=== PATIENT | male | born 1955 | race Caucasian/White ===

== ENCOUNTER 2025-09-27 17:22 | Inpatient (IN) | payer MEDICARE, OTHER ==
[2025-09-27 18:05] LABS: #Basophils 0.06 10x3/uL (0.0-0.2); #Eosinophils 0.21 10x3/uL (0.0-0.7); #Monocytes 0.43 10x3/uL (0.11-0.59); #Neutrophils 3.91 10x3/uL (1.40-6.50); %Basophils 1.1 % (0.0-1.0); %Eosinophils 3.9 % (0.0-10.0); %Lymphocytes 13.6 % (21.0-51.0); %Monocytes 8.0 % (0.0-10.0); %Neutrophils 73.2 % (42.0-75.0); Hematocrit 41.2 % (42.0-52.0); Hemoglobin 12.6 g/dL (14.0-18.0); Mean Corpuscular Hemoglobin 28.0 pg (27.0-31.0); Mean Corpuscular Volume 91.6 fL (78.0-98.0); Platelet Count 161 10x3/uL (130-400); Red Blood Cell (RBC) Count 4.50 mill/uL (4.70-6.10); White Blood Cell (WBC) Count 5.35 10x3/uL (4.8-10.8)
[2025-09-27 18:23] LABS: ALT (SGPT) 12 U/L (Less than 45); AST (SGOT) 12 U/L (11-34); Albumin 4.1 g/dL (3.1-4.5); Alkaline Phosphatase 67 U/L (40-110); Anion Gap 16 mmol/L (10-20); BUN (Urea Nitrogen) 41 mg/dL (8.4-25.7); Bilirubin, Total 0.4 mg/dL (0.3-1.2); Calc. Creatinine Clearance 0 mL/min (70-130); Calcium 9.6 mg/dL (7.8-10.44); Carbon Dioxide 31 mmol/L (23-31); Chloride 103 mmol/L (98-107); Globulin 2.6 g/dL (2.4-3.5); Glucose 98 mg/dL (80-115); Potassium 4.5 mmol/L (3.5-5.1); Sodium 145 mmol/L (136-145)
[2025-09-27] MEDS ORDERED: hydrALAZINE 20 MG/ML VIAL ONE (19:32)
[2025-09-27] MEDS ORDERED: Ondansetron PF 4 MG/2 ML Vial IVP PRN (19:40)
[2025-09-27] MEDS ORDERED: Calcium Carbonate 500 MG ChewTAB PO PRN (19:40)
[2025-09-27] MEDS: Bumetanide 1 MG/4 ML VIAL IVP SCH (22:45)
[2025-09-27] MEDS: Carvedilol 3.125 MG TAB PO SCH (22:51)
[2025-09-27] MEDS: Heparin 5,000 UNITS/ML VIAL SC SCH (22:51)
[2025-09-28 04:50] LABS: #Basophils 0.07 10x3/uL (0.0-0.2); #Eosinophils 0.26 10x3/uL (0.0-0.7); #Monocytes 0.54 10x3/uL (0.11-0.59); #Neutrophils 4.52 10x3/uL (1.40-6.50); %Basophils 1.1 % (0.0-1.0); %Eosinophils 4.1 % (0.0-10.0); %Lymphocytes 14.3 % (21.0-51.0); %Monocytes 8.6 % (0.0-10.0); %Neutrophils 71.6 % (42.0-75.0); Hematocrit 38.7 % (42.0-52.0); Hemoglobin 11.6 g/dL (14.0-18.0); Mean Corpuscular Hemoglobin 27.8 pg (27.0-31.0); Mean Corpuscular Volume 92.8 fL (78.0-98.0); Platelet Count 139 10x3/uL (130-400); Red Blood Cell (RBC) Count 4.17 mill/uL (4.70-6.10); White Blood Cell (WBC) Count 6.31 10x3/uL (4.8-10.8)
[2025-09-28 05:21] LABS: Anion Gap 11 mmol/L (10-20); BUN (Urea Nitrogen) 46 mg/dL (8.4-25.7); Calc. Creatinine Clearance 19 mL/min (70-130); Calcium 9.7 mg/dL (7.8-10.44); Carbon Dioxide 32 mmol/L (23-31); Chloride 103 mmol/L (98-107); Glucose 95 mg/dL (80-115); Magnesium 2.4 mg/dL (1.6-2.6); Potassium 4.2 mmol/L (3.5-5.1); Sodium 142 mmol/L (136-145)
[2025-09-28] MEDS ORDERED: Furosemide 40 MG (4 mL) VIAL SLOW IVP SCH (06:00)
[2025-09-28] MEDS: Losartan 25 MG TAB PO SCH (09:36)
[2025-09-28] MEDS: Aspirin 325 MG TAB PO SCH (09:36)
[2025-09-28] MEDS ORDERED: Albuterol 2.5 MG (3 mL) NEB NEB PRN (11:53)
[2025-09-28] MEDS ORDERED: Furosemide 100 MG (10 mL) VIAL SLOW IVP SCH (14:00)
[2025-09-28 14:04] VITALS: BMI 20.5
[2025-09-28] MEDS: Guaifenesin DM 100-10/5 ML UDCUP PO PRN (14:38)
[2025-09-28 15:18] LABS: Bacteria/HPF None Seen HPF (None Seen); Glucose, Urine (Dipstick) Normal (Negative); Leukocyte Negative Leu/uL (Negative); Protein, Urine (Dipstick) Negative (Neg-Trace); RBC/HPF 0-3 HPF (0-3); Specific Gravity, Urine 1.007 (1.002-1.036); WBC/HPF None Seen HPF (0-3)
[2025-09-28 15:30] LABS: Sodium, Urine 91.0 mmol/L (Not Available)
[2025-09-28] MEDS: Furosemide 100 MG (10 mL) VIAL SLOW IVP SCH (16:44)
[2025-09-29 04:43] LABS: #Basophils 0.06 10x3/uL (0.0-0.2); #Eosinophils 0.23 10x3/uL (0.0-0.7); #Monocytes 0.41 10x3/uL (0.11-0.59); #Neutrophils 3.60 10x3/uL (1.40-6.50); %Basophils 1.2 % (0.0-1.0); %Eosinophils 4.5 % (0.0-10.0); %Lymphocytes 15.8 % (21.0-51.0); %Monocytes 8.0 % (0.0-10.0); %Neutrophils 70.3 % (42.0-75.0); Hematocrit 37.8 % (42.0-52.0); Hemoglobin 11.5 g/dL (14.0-18.0); Mean Corpuscular Hemoglobin 28.0 pg (27.0-31.0); Mean Corpuscular Volume 92.2 fL (78.0-98.0); Platelet Count 136 10x3/uL (130-400); Red Blood Cell (RBC) Count 4.10 mill/uL (4.70-6.10); White Blood Cell (WBC) Count 5.12 10x3/uL (4.8-10.8)
[2025-09-29 04:46] LABS: ALT (SGPT) Less than 7 U/L (Less than 45); AST (SGOT) 25 U/L (11-34); Albumin 3.6 g/dL (3.1-4.5); Alkaline Phosphatase 58 U/L (40-110); Anion Gap 16 mmol/L (10-20); BUN (Urea Nitrogen) 46 mg/dL (8.4-25.7); Bilirubin, Total 0.4 mg/dL (0.3-1.2); Calc. Creatinine Clearance 17 mL/min (70-130); Calcium 9.4 mg/dL (7.8-10.44); Carbon Dioxide 28 mmol/L (23-31); Chloride 102 mmol/L (98-107); Globulin 2.5 g/dL (2.4-3.5); Glucose 94 mg/dL (80-115); Potassium 4.5 mmol/L (3.5-5.1); Sodium 141 mmol/L (136-145)
[2025-09-29] MEDS: Furosemide 100 MG (10 mL) VIAL SLOW IVP SCH (06:11)
[2025-09-30] MEDS: hydrALAZINE 20 MG/ML VIAL SLOW IVP SCH (02:18)
[2025-09-30] MEDS: Acetaminophen 325 MG TAB PO PRN (02:18)
[2025-09-30 05:12] LABS: Anion Gap 14 mmol/L (10-20); BUN (Urea Nitrogen) 48 mg/dL (8.4-25.7); Calc. Creatinine Clearance 17 mL/min (70-130); Calcium 9.4 mg/dL (7.8-10.44); Carbon Dioxide 30 mmol/L (23-31); Chloride 98 mmol/L (98-107); Glucose 90 mg/dL (80-115); Iron 41 ug/dL (65-175); Iron Binding Capacity, Total 314 mcg/dL (261-462); Potassium 3.7 mmol/L (3.5-5.1); Sodium 138 mmol/L (136-145)
[2025-09-30] MEDS: Furosemide 40 MG TAB PO SCH (08:23)
[2025-09-30] MEDS: Sodium Ferric Gluconate 250 MG in Sodium Chloride 0.9% 250 ML 250 ML IVPB SCH (13:30)
[2025-09-30] MEDS: Carvedilol 6.25 MG TAB PO SCH (20:30)
[2025-10-01] MEDS: Aspirin 81 mg Enteric Coated Tablet PO SCH (08:08)
[2025-10-02 05:21] LABS: #Basophils 0.07 10x3/uL (0.0-0.2); #Eosinophils 0.21 10x3/uL (0.0-0.7); #Monocytes 0.58 10x3/uL (0.11-0.59); #Neutrophils 3.54 10x3/uL (1.40-6.50); %Basophils 1.4 % (0.0-1.0); %Eosinophils 4.1 % (0.0-10.0); %Lymphocytes 14.5 % (21.0-51.0); %Monocytes 11.2 % (0.0-10.0); %Neutrophils 68.6 % (42.0-75.0); Hematocrit 37.4 % (42.0-52.0); Hemoglobin 11.8 g/dL (14.0-18.0); Mean Corpuscular Hemoglobin 28.2 pg (27.0-31.0); Mean Corpuscular Volume 89.3 fL (78.0-98.0); Platelet Count 132 10x3/uL (130-400); Red Blood Cell (RBC) Count 4.19 mill/uL (4.70-6.10); White Blood Cell (WBC) Count 5.16 10x3/uL (4.8-10.8)
[2025-10-02 05:34] LABS: Anion Gap 15 mmol/L (10-20); BUN (Urea Nitrogen) 46 mg/dL (8.4-25.7); Calc. Creatinine Clearance 16 mL/min (70-130); Calcium 9.5 mg/dL (7.8-10.44); Carbon Dioxide 27 mmol/L (23-31); Chloride 100 mmol/L (98-107); Glucose 90 mg/dL (80-115); Potassium 4.2 mmol/L (3.5-5.1); Sodium 138 mmol/L (136-145)
[2025-10-02 06:05] VITALS: BMI 19.5
[2025-10-02 16:47] VITALS: BP 141/94; TEMP 98.1
== END 2025-10-02 18:24 | disposition home or self-care (01) | DRG 280 ==
LOC: ERS 17:22 → OBS 19:22
PROVIDERS: ADMIT Student in an Organized Health Care Education/Training Program; ATTEND Family Medicine
DX: I13.0 Hypertensive heart and chronic kidney disease with heart failure and stage 1 through stage 4 chronic kidney disease, or unspecified chronic kidney disease (principal); I50.21 Acute systolic (congestive) heart failure; I21.A1 Myocardial infarction type 2; J96.01 Acute respiratory failure with hypoxia; N17.9 Acute kidney failure, unspecified; J44.1 Chronic obstructive pulmonary disease with (acute) exacerbation; N18.4 Chronic kidney disease, stage 4 (severe); E87.3 Alkalosis; I25.10 Atherosclerotic heart disease of native coronary artery without angina pectoris; I73.9 Peripheral vascular disease, unspecified; I25.5 Ischemic cardiomyopathy; F10.90 Alcohol use, unspecified, uncomplicated; Z95.818 Presence of other cardiac implants and grafts; Z95.820 Peripheral vascular angioplasty status with implants and grafts; Z82.49 Family history of ischemic heart disease and other diseases of the circulatory system; Z91.09 Other allergy status, other than to drugs and biological substances; Z88.8 Allergy status to other drugs, medicaments and biological substances; E78.5 Hyperlipidemia, unspecified; F43.10 Post-traumatic stress disorder, unspecified; Z86.73 Personal history of transient ischemic attack (TIA), and cerebral infarction without residual deficits; Z98.49 Cataract extraction status, unspecified eye; H91.90 Unspecified hearing loss, unspecified ear; Z90.49 Acquired absence of other specified parts of digestive tract; Z90.89 Acquired absence of other organs; Z98.61 Coronary angioplasty status; Z98.890 Other specified postprocedural states; Z82.3 Family history of stroke; Z83.6 Family history of other diseases of the respiratory system; F17.210 Nicotine dependence, cigarettes, uncomplicated; Z71.6 Tobacco abuse counseling; D63.1 Anemia in chronic kidney disease; Z91.018 Allergy to other foods; D50.9 Iron deficiency anemia, unspecified; Z86.79 Personal history of other diseases of the circulatory system; Z79.899 Other long term (current) drug therapy
CPT/HCPCS: 36415; 71045; 71046; 76770; 80048; 80053; 81001; 82043; 82306; 82728; 83540; 83550; 83735; 83880; 83970; 84300; 84484; 85025; 93005; 93798; 93976; 94640; 96374; 96375; J0360; J1250; J1644; J1940; J2916; J3490; J7050